=== PATIENT | female | born 1970 | race Caucasian/White ===

== ENCOUNTER 2022-10-24 02:53 | Day surgery (SDC) | payer OTHER, SELFPAY ==
[2022-07-17 08:29] VITALS: BMI 42.2
[2022-10-07 13:51] VITALS: BMI 42.2
--- NOTE | 2022-10-23 16:00 | P.PNAN_ITS ---
Anes - Initial Pre Proc Eval Procedure: Operation Date: 10/24/22 07:30 Proposed Procedures p Screening Colonoscopy - Laci Martines MD Date/Time: 10/23/22 16:00 Surgeon: Laci Martines MD Pre Op Diagnosis: neoplasm screening Patient Data Age: 52 Gender: F Height: 1.65 m Weight: 115 kg Allergies Allergy/AdvReac Type Severity Reaction Status Date / Time No Known Allergies Allergy Unknown Verified 10/24/22 06:22 Home Medications Medication Instructions Recorded Confirmed Type blood sugar diagnostic (Accu-Chek #100 ea 07/09/20 10/24/22 Rx Philly Plus test strips) blood-glucose meter (Accu-Chek #1 ea 07/09/20 10/24/22 Rx Philly Plus Meter) lancets (Accu-Chek Fastclix Lancet See Rx Instructions .Route 09/30/20 10/24/22 Rx Drum) .COMPLEX #102 ea levothyroxine 50 mcg tablet 50 mcg PO DAILY #30 tabs 06/29/22 10/24/22 Rx lisinopril 10 See Rx Instructions .Route 06/29/22 10/24/22 Rx mg-hydrochlorothiazide 12.5 mg .COMPLEX #30 tabs tablet rosuvastatin 20 mg tablet (Crestor) 20 mg PO DAILY #30 tabs 06/29/22 10/24/22 Rx metformin 500 mg tablet,extended 1,000 mg PO DAILY #60 tabs 08/25/22 10/24/22 Rx release 24 hr Patient hx anesthesia problems: none Family hx anesthesia problems: none Results Review: All pre-operative results and documents have been reviewed as part of the pre- operative evaluation. [facility] Past Medical History Medical History (Updated 10/24/22 @ 07:20 by Laci Martines MD) Anxiety disorder, unspecified BMI 38.0-38.9,adult BMI 45.0-49.9, adult Depression Essential hypertension Hypothyroidism (acquired) Mixed hyperlipidemia Morbid obesity with BMI of 40.0-44.9, adult Type 2 diabetes mellitus without complication, with prison current use of insulin pump Family History Family History Mother Family history of malignant neoplasm of breast in first degree relative Family history of malignant neoplasm of thyroid Family history of diabetes mellitus in first degree relative Father Family history of throat cancer Sibling Hearing loss Social History Social History Second hand tobacco smoke exposure: Yes Alcohol intake: current Substance use: never Substance use type: does not use Living arrangements: with family Occupation/Education: occupation 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 Informed Consent: The patient's anesthetic plan and its attendant risks and benefits were discussed with the patient/family/POA. Questions were solicited and answers provided to the satisfaction of the patient/family/POA.
[2022-10-24 06:23] VITALS: BP 135/79; PULSE 68; RESP 18; TEMP 36.2; O2SAT 98; BMI 39.9
[2022-10-24 06:41] LABS: Glucose Point of Care 303 mg/dl (65-105)
[2022-10-24] MEDS: LACTATED RINGERS 1,000 ML 150 ML IV CONT (06:41)
--- NOTE | 2022-10-24 07:19 | PM.HPGS ---
History of Present Illness History of Present Illness Consent: Risks, benefits, and alternatives have been discussed and questions answered. Patient agrees to proceed with procedure. Chief complaint: neoplasm screening Narrative: Raquel Goodman is a 52 year old female Presents for neoplasia screening colonoscopy. Patient's current weight appetite and bowel movements are normal. Patient denies abdominal pain. She has had no bleeding. Family history is significant that her grandmother had colon cancer. No first-degree relatives are known to have colon cancer or polyps. Review of Systems Review of Systems: Review of systems noncontributory. [facility] Past Medical History Medical History (Updated 10/24/22 @ 07:20 by Laci Martines MD) Anxiety disorder, unspecified BMI 38.0-38.9,adult BMI 45.0-49.9, adult Depression Essential hypertension Hypothyroidism (acquired) Mixed hyperlipidemia Morbid obesity with BMI of 40.0-44.9, adult Type 2 diabetes mellitus without complication, with correction current use of insulin pump Family History Family History Mother Family history of malignant neoplasm of breast in first degree relative Family history of malignant neoplasm of thyroid Family history of diabetes mellitus in first degree relative Father Family history of throat cancer Sibling Hearing loss Social History Social History Second hand tobacco smoke exposure: Yes Alcohol intake: current Substance use: never Substance use type: does not use Living arrangements: with family Occupation/Education: occupation 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 Gender identity (if verbalized by the patient): Female Meds Home Medications and Allergies Home Medications Medication Instructions Recorded Confirmed Type blood sugar diagnostic (Accu-Chek #100 ea 07/09/20 10/24/22 Rx Philly Plus test strips) blood-glucose meter (Accu-Chek #1 ea 07/09/20 10/24/22 Rx Philly Plus Meter) lancets (Accu-Chek Fastclix Lancet See Rx Instructions .Route 09/30/20 10/24/22 Rx Drum) .COMPLEX #102 ea levothyroxine 50 mcg tablet 50 mcg PO DAILY #30 tabs 06/29/22 10/24/22 Rx lisinopril 10 See Rx Instructions .Route 06/29/22 10/24/22 Rx mg-hydrochlorothiazide 12.5 mg .COMPLEX #30 tabs tablet rosuvastatin 20 mg tablet (Crestor) 20 mg PO DAILY #30 tabs 06/29/22 10/24/22 Rx metformin 500 mg tablet,extended 1,000 mg PO DAILY #60 tabs 08/25/22 10/24/22 Rx release 24 hr Allergies Allergy/AdvReac Type Severity Reaction Status Date / Time No Known Allergies Allergy Unknown Verified 10/24/22 06:22 Vital Signs Vital Signs - 24 hr 10/24/22 06:23 Temperature 97.2 F L Pulse Rate 68 Respiratory Rate 18 Blood Pressure 135/79 Pulse Oximetry 98 Oxygen Delivery Room Air Exam Narrative: Physical exam reveals patient to be alert. Vital signs stable. HEENT exam is unremarkable. Patient is anicteric. Lungs are clear to auscultation and to percussion. Heart is without murmur or extra sounds. Abdomen bowel sounds are present soft nontender with no organomegaly. Digital external rectal exam is normal. Assessment and Plan Assessment and plan (1) Encounter for screening colonoscopy: Code(s): Z12.11 - Encounter for screening for malignant neoplasm of colon Status: Acute Assessment and Plan: Patient presents for screening colonoscopy. She appears to be at average risk for colon polyps. Further recommendations may be given after endoscopy. (2) Morbid obesity with BMI of 40.0-44.9, adult: Code(s): E66.01 - Morbid (severe) obesity due to excess calories; Z68.41 - Body mass index [BMI] 40.0-44.9, adult Status: Acute Assessment and Plan: Weight loss with calorie restriction increase activity are advised.
--- NOTE | 2022-10-24 07:20 | SUR.PREOP ---
Dr. Leger notified of elevated blood glucose of 303.
[2022-10-24 07:53] VITALS: BP 93/55; PULSE 82; RESP 23; O2SAT 94
[2022-10-24 08:03] VITALS: BP 112/66; PULSE 77; RESP 21; O2SAT 97
[2022-10-24 08:13] VITALS: BP 113/69; PULSE 69; RESP 21; O2SAT 98
== END 2022-10-24 08:19 | disposition home or self-care (01) ==
PROVIDERS: PCP Family Medicine; Visit Provider Internal Medicine Gastroenterology
PROC: 0DJD8ZZ Inspection of Lower Intestinal Tract, Via Natural or Artificial Opening Endoscopic (ICD-10-PCS; CPT 45378; principal; 2022-10-24 07:30)
DX: Z12.11 Encounter for screening for malignant neoplasm of colon (principal); K64.8 Other hemorrhoids; I10 Essential (primary) hypertension; E03.9 Hypothyroidism, unspecified; E78.2 Mixed hyperlipidemia; E11.9 Type 2 diabetes mellitus without complications; F32.A Depression, unspecified; E66.9 Obesity, unspecified; Z68.39 Body mass index [BMI] 39.0-39.9, adult; Z79.84 Long term (current) use of oral hypoglycemic drugs
CPT/HCPCS: 45378; 82948; J2704; J7120